=== PATIENT | female | born 1960 | race Caucasian/White ===

== ENCOUNTER 2022-03-23 21:59 | Observation (INO) | payer BC ==
[~2022-03-23] VITALS: Ht 152.4 cm; Wt 60.0 kg
[2022-03-23 22:10] VITALS: BP 137/76
[2022-03-23] MEDS ORDERED: ASPIRIN81 MG PO (22:35)
[2022-03-23 22:42] LABS: HEMATOCRIT 41.2 % (37.0-47.0); HEMOGLOBIN 13.9 g/dl (12.0-16.0); MEAN CELL VOLUME 93.6 fL CALC (80.0-100.0); MEAN CORPUSCULAR HGB 31.6 pG CALC (26.0-32.0); MEAN CORPUSCULAR HGB CONC 33.7 g/dL CAL (32.0-36.0); NEUT# 3.9 thou/uL (2.00-7.15); RED BLOOD COUNT 4.4 mill/uL (4.20-5.60); RED CELL DISTRI WIDTH 12.9 % (11.5-15.5)
[2022-03-23 22:53] VITALS: BP 134/75
[2022-03-23 22:58] LABS: ALBUMIN 4.5 g/dL (3.2-5.0); ALKALINE PHOSPHATASE 49 u/l (38-126); ANION GAP 12 (6-22 (CALC)); BILIRUBIN, TOTAL 0.4 mg/dL (0.0-1.4); BUN 15 mg/dL (8-23); BUN/CREATININE RATIO 12 (12-20 (CALC)); CARBON DIOXIDE 28 mmol/l (22-30); CHLORIDE 107 mmol/l (95-108); CREATININE 1.2 mg/dL (0.5-1.0); GFR 45 ML/MIN (>=60 (CALC)); GFR FOR AFR.AMER. 55 ML/MIN (>=60 (CALC)); POTASSIUM 3.2 mmol/l (3.5-5.1); SGOT/AST 24 u/l (9-36); SODIUM 144 mmol/l (137-146); TOTAL PROTEIN 7.2 g/dL (6.3-8.2)
[2022-03-23 22:59] LABS: ACT PARTIAL THROMBO TIME 24.1 SECONDS (20.0-32.5); INTERNATIONAL NORMALIZED RATIO 0.9 RATIO (0.7-1.3); PROTHROMBIN TIME 9.8 SECONDS (9.0-12.5)
[2022-03-23 23:00] VITALS: BP 123/73
[2022-03-23 23:09] LABS: MYOGLOBIN 37 ng/mL (0 - 62)
[2022-03-23 23:25] VITALS: BP 126/65
[2022-03-23 23:27] LABS: URINE BILIRUBIN - DIPSTICK NEGATIVE (NEGATIVE); URINE BLOOD DIPSTICK MODERATE (NEGATIVE); URINE COLOR YELLOW; URINE GLUCOSE - DIPSTICK NEGATIVE (NEGATIVE); URINE KETONE NEGATIVE (NEGATIVE); URINE LEUK ESTERASE NEGATIVE (NEGATIVE); URINE PROTEIN - DIPSTICK NEGATIVE (NEG-TRACE); URINE SPECIFIC GRAVITY <=1.005; URINE UROBILINOGEN - DIPSTICK 0.2 E.U./dL (0.2)
[2022-03-23 23:31] VITALS: BP 111/63
[2022-03-23 23:37] LABS: URINE NITRITE - DIPSTICK NEGATIVE (Negative)
[2022-03-23 23:38] LABS: URINE MUCUS FEW hpf (NONE-FEW); URINE SQUAMOUS EPITHELIAL CELL FEW EPI/hpf (0-FEW)
[2022-03-23 23:45] VITALS: BP 108/62
[2022-03-24] VITALS (7 sets, daily range): BP systolic 99–159; BP diastolic 47–85
[2022-03-24 00:04] LABS: C-REACTIVE PROTEIN < 0.5 mg/dL (0-0.9); CHOLESTEROL HDL RATIO 3.7 (<4.4 (CALC)); HDL CHOLESTEROL 71 mg/dL (>=40); MAGNESIUM 2.1 mg/dL (1.6-2.3); TOTAL CHOLESTEROL 261 mg/dl (0-199)
[2022-03-24 00:12] LABS: TOTAL TRIGLYCERIDES 404 mg/dl (30-149)
[2022-03-24 05:13] LABS: HEMATOCRIT 40.5 % (37.0-47.0); HEMOGLOBIN 13.3 g/dl (12.0-16.0); MEAN CELL VOLUME 96.2 fL CALC (80.0-100.0); MEAN CORPUSCULAR HGB 31.6 pG CALC (26.0-32.0); MEAN CORPUSCULAR HGB CONC 32.8 g/dL CAL (32.0-36.0); RED BLOOD COUNT 4.21 mill/uL (4.20-5.60); RED CELL DISTRI WIDTH 12.9 % (11.5-15.5)
[2022-03-24 05:27] LABS: ANION GAP 9 (6-22 (CALC)); BUN 17 mg/dL (8-23); BUN/CREATININE RATIO 18 (12-20 (CALC)); CARBON DIOXIDE 24 mmol/l (22-30); CHLORIDE 110 mmol/l (95-108); GFR 56 ML/MIN (>=60 (CALC)); GFR FOR AFR.AMER. > 60 ML/MIN (>=60 (CALC)); MAGNESIUM 2.2 mg/dL (1.6-2.3); SODIUM 139 mmol/l (137-146)
[2022-03-24 05:31] LABS: POTASSIUM 4.2 mmol/l (3.5-5.1)
[2022-03-24 13:48] LABS: CHOLESTEROL HDL RATIO 3.2 (<4.4 (CALC))
== END 2022-03-24 18:35 | disposition home or self-care (01) | DRG 123 ==
LOC: ED 21:59 → MS2 23:47
PROVIDERS: Family Medicine; Nurse Practitioner; ADMIT Hospitalist; ATTEND Hospitalist
DX: H53.2 Diplopia (principal); E78.1 Pure hyperglyceridemia; I73.00 Raynaud's syndrome without gangrene; Z95.5 Presence of coronary angioplasty implant and graft; Z87.891 Personal history of nicotine dependence; Z20.822 Contact with and (suspected) exposure to COVID-19
CPT/HCPCS: G0378; J2060; Q9967